=== PATIENT | male | born 1970 | race Hispanic/Latino ===

== ENCOUNTER 2016-09-14 16:25 | Emergency (ER) | payer SELFPAY ==
--- NOTE | 2016-09-14 16:31 | ED PDOC ---
Arrival/HPI - General Time Seen by Provider: 09/14/16 16:30 Historian: Patient - History of Present Illness Narrative History of Present Illness (Text): 09/14/16 16:40 This 46 yo male presents to this ED requesting PES evaluation. Patient stated he is suicidal, and he wants to walk in front of a train. Patient stated he was recently signed himself out from [facility] from [facility] unit for substance abuse, and ETOH. He stated he is depressed and he needs Psychiatric help. Patient admits drinking alcohol, heroin use, cocaine use, cigaret use, and Xanax within last 24 hours. He said he was trying to hurt himself by taking multiple illegal drugs. Denies other complains. Time/Duration: Other (worsen last 2 days, chronic complains) Context: Home Past Medical History - Provider Review Nursing Documentation Reviewed: Yes Family/Social History - Physician Review Nursing Documentation Reviewed: Yes Family/Social History: No Known Family HX Allergies/Home Meds Allergies/Adverse Reactions: Allergies No Known Allergies Allergy (Verified 09/14/16 16:28) Home Medications: Home Meds Medication Instructions Recorded Confirmed Alprazolam [Xanax] 2 mg PO BID 09/14/16 09/14/16 QUEtiapine [SEROquel] 200 mg PO TID 09/14/16 09/14/16 Risperidone [Risperdal] 2 mg PO BID 09/14/16 09/14/16 Zolpidem [Ambien] 10 mg PO HS 09/14/16 09/14/16 Review of Systems - Review of Systems Constitutional: Normal. absent: Fatigue, Weight Change, Fevers Eyes: Normal ENT: Normal Respiratory: Normal. absent: SOB, Cough Cardiovascular: Normal. absent: Chest Pain, Palpitations Gastrointestinal: Normal. absent: Abdominal Pain, Nausea, Vomiting Genitourinary Male: Normal. absent: Dysuria, Frequency, Hematuria Musculoskeletal: Normal. absent: Back Pain Skin: Normal. absent: Rash Neurological: Normal. absent: Headache, Dizziness, Focal Weakness, Gait Changes Endocrine: Normal Hemo/Lymphatic: Normal Psychiatric: Depression, Suicidal Ideation Physical Exam Vital Signs Temp Pulse Resp BP Pulse Ox 09/14/16 22:12 97.8 F 90 18 141/79 99 09/14/16 16:33 98.6 F 103 H 20 139/95 H 97 Temperature: Afebrile Blood Pressure: Normal Pulse: Regular Respiratory Rate: Normal Appearance: Positive for: Well-Appearing, Non-Toxic, Comfortable Pain Distress: None Mental Status: Positive for: Alert and Oriented X 3 - Systems Exam Head: Present: Atraumatic, Normocephalic Pupils: Present: PERRL Extroacular Muscles: Present: EOMI Conjunctiva: Present: Normal Mouth: Present: Moist Mucous Membranes Neck: Present: Normal Range of Motion Respiratory/Chest: Present: Clear to Auscultation, Good Air Exchange. No: Respiratory Distress, Accessory Muscle Use Cardiovascular: Present: Regular Rate and Rhythm, Normal S1, S2. No: Murmurs Abdomen: Present: Normal Bowel Sounds. No: Tenderness, Distention, Peritoneal Signs Back: Present: Normal Inspection Upper Extremity: Present: Normal Inspection. No: Cyanosis, Edema Lower Extremity: Present: Normal Inspection. No: Edema Neurological: Present: GCS=15, CN II-XII Intact, Speech Normal Skin: Present: Warm, Dry, Normal Color. No: Rashes Psychiatric: Present: Alert, Oriented x 3, Depressed Mood, Suicidal Ideation Medical Decision Making ED Course and Treatment: 09/14/16 19:48 Patient is medical clear for psychiatric transfer Re-evaluation Time: 19:48 Reassessment Condition: Re-examined, Improving,but remains with symptoms - Lab Interpretations Lab Results: 09/14/16 17:00 09/14/16 17:00 Lab Results 09/14/16 17:00: Alcohol, Quantitative < 10 09/14/16 17:00: Salicylates < 1 L, Acetaminophen < 10.0 L 09/14/16 17:00: Urine Opiates Screen Positive H, Urine Methadone Screen Negative , Ur Barbiturates Screen Positive H, Ur Phencyclidine Scrn Negative, Ur Amphetamines Screen Negative, U Benzodiazepines Scrn Positive H, U Oth Cocaine Metabols Positive H, U Cannabinoids Screen Negative 09/14/16 17:00: Sodium 139, Potassium 3.8, Chloride 100, Carbon Dioxide 26, Anion Gap 17, BUN 20, Creatinine 0.7, Est GFR ( Amer) > 60, Est GFR (Non- Af Amer) > 60, Random Glucose 121 H, Calcium 9.9, Total Bilirubin 0.7, AST 67 H , ALT 123 H, Alkaline Phosphatase 66, Total Protein 8.7 H, Albumin 4.7, Globulin 4.0, Albumin/Globulin Ratio 1.2 09/14/16 17:00: Urine Color Yellow, Urine Appearance Clear, Urine pH 6.0, Ur Specific [place] >= 1.030, Urine Protein 30 H, Urine Glucose (UA) Negative, Urine Ketones Negative, Urine Blood Negative, Urine Nitrate Negative, Urine Bilirubin Negative, Urine Urobilinogen 1.0 H, Ur Leukocyte Esterase Negative, Urine RBC 0 - 2, Urine WBC 1 - 3, Ur Epithelial Cells 0 - 2, Amorphous Sediment Few, Urine Bacteria Many 09/14/16 17:00: WBC 9.7, RBC 4.16, Hgb 13.0 L, Hct 37.9 L, MCV 91.1, MCH 31.3, MCHC 34.3, RDW 15.0 H, Plt Count 294, MPV 9.0, Gran % 59.1, Lymph % (Auto) 29.1 , [place] % (Auto) 8.4 H, Eos % (Auto) 3.2, Baso % (Auto) 0.2, Gran # 5.72, Lymph # 2.8, [place] # 0.8 H, Eos # 0.3, Baso # 0.02 I have reviewed the lab results: Yes Interpretation: No clinic. lab abnormalty (poly substance abuse) - RAD Interpretation Narrative RAD Interpretations (Text): 09/14/16 19:49 CXR: NAD Radiology Orders: 09/14/16 16:40 CHEST PORTABLE [RAD] Stat - EKG Interpretation Interpreted by ED Physician: Yes (NSR @ 96 bpm. Normal interval. No ST changes ) Type: 12 lead EKG Comparison: No previous EKG avail. Disposition/Present on Arrival - Present on Arrival Any Indicators Present on Arrival: No History of DVT/PE: No History of Uncontrolled Diabetes: No Urinary Catheter: No History of Decub. Ulcer: No - Disposition Have Diagnosis and Disposition been Completed?: Yes Diagnosis: Schizoaffective disorder, depressive type Disposition: Transfer [facility] Disposition Time: 20:45 Condition: GOOD Referrals: PCP,NO [Primary Care Provider] - Follow up with primary
[2016-09-14 17:08] LABS: ADD MANUAL DIFF? NO
[2016-09-14 17:21] LABS: URINE BILIRUBIN NEGATIVE (NEGATIVE); URINE BLOOD NEGATIVE (NEGATIVE); URINE GLUCOSE (UA) NEGATIVE (NEGATIVE); URINE KETONE NEGATIVE (NEGATIVE); URINE LEUKOCYTE ESTERASE NEGATIVE Leu/uL (NEGATIVE); URINE PROTEIN 30 mg/dL (<30 mg/dL)
[2016-09-14 17:23] LABS: BASO # 0.02 K/mm3 (0.0-2.0); BASO % 0.2 % (0.0-3.0); EOS # 0.3 (0.0-0.7); EOS % 3.2 % (1.5-5.0); GRAN # 5.72 (1.4-6.5); GRAN % 59.1 % (50.0-68.0); HEMATOCRIT 37.9 % (42.0-52.0); LYMPH # 2.8 (1.2-3.4); LYMPH % 29.1 % (22.0-35.0); MEAN CELL VOLUME 91.1 fL (80.0-105.0); MEAN CORPUSCULAR HEMOGLOBIN 31.3 pg (25.0-35.0); MEAN CORPUSCULAR HGB CONC 34.3 g/dl (31.0-37.0); MONO # 0.8 (0.1-0.6); MONO % 8.4 % (1.0-6.0); PLATELET COUNT 294 10^3/uL (120.0-450.0); WHITE BLOOD COUNT 9.7 10^3/ul (4.5-11.0)
[2016-09-14 17:25] LABS: URINE APPEARANCE CLEAR (CLEAR); URINE COLOR YELLOW (YELLOW)
[2016-09-14 17:26] LABS: URINE EPITHELIAL CELLS 0 - 2 /hpf (0-5); URINE RBC 0 - 2 /hpf (0-2)
[2016-09-14 17:27] LABS: URINE BACTERIA MANY (NEG)
[2016-09-14 17:28] LABS: URINE AMORPHOUS SEDIMENT FEW
[2016-09-14 17:35] LABS: ALB/GLOB RATIO 1.2 (1.1-1.8); ALKALINE PHOSPHATASE 66 U/L (38-133); ALT/SGPT 123 U/L (7-56); AST/SGOT 67 U/L (15-59); BILIRUBIN,TOTAL 0.7 mg/dL (0.2-1.3); BLOOD UREA NITROGEN 20 mg/dL (7-21); CALCIUM 9.9 mg/dL (8.4-10.5); CARBON DIOXIDE 26 mmol/L (21-33); CHLORIDE 100 mmol/L (98-107); GFR AFRICAN-AMERICAN > 60; GLUCOSE,RANDOM 121 mg/dL (70-110); POTASSIUM 3.8 mmol/L (3.6-5.0); SODIUM 139 mmol/L (132-148); TOTAL PROTEIN 8.7 g/dL (5.8-8.3)
--- NOTE | 2016-09-14 18:47 | RAD ---
HISTORY: PES eval COMPARISON: Chest x-ray performed 09/14/16 TECHNIQUE: Chest, one view. FINDINGS: LUNGS: No focal consolidation. Please note that chest x-ray has limited sensitivity for the detection of pulmonary masses. PLEURA: No significant pleural effusion identified. No definite pneumothorax . CARDIOVASCULAR: Heart size appears within normal limits. Mildly tortuous aorta. OSSEOUS STRUCTURES: No acute osseous abnormality identified. VISUALIZED UPPER ABDOMEN: Unremarkable. OTHER FINDINGS: None. IMPRESSION: No focal consolidation, significant pleural effusion, or definite pneumothorax identified.
[2016-09-14 22:12] VITALS: BP 141/79; PULSE 90; RESP 18; TEMP 97.8; O2SAT 99
--- NOTE | 2016-09-14 22:49 | CARD ---
APPROVED REPORT EKG Measurement Heart [id number] <Conclusion> Normal sinus rhythm Inferior infarct, age undetermined Abnormal ECG
== END 2016-09-14 23:30 | disposition short-term general hospital (02) ==
LOC: ED 16:25
DX: F25.9 Schizoaffective disorder, unspecified (principal); F32.9 Major depressive disorder, single episode, unspecified
CPT/HCPCS: 71010; 80053; 81001; 85025; 90791; 93005; 99283; G0480